=== PATIENT | female | born 1990 | race Caucasian/White ===

== ENCOUNTER 2021-07-09 01:15 | Emergency (ER) | payer OTHER ==
[~2021-07-09] VITALS: Ht 165.1 cm; Wt 96.2 kg
[2021-07-09] MEDS ORDERED: PROVENTIL HFA6.7 GM INH (01:27)
[2021-07-09] MEDS ORDERED: JENCYCLA0.35 MG PO (01:28)
--- NOTE | 2021-07-10 17:14 | EKG ---
[facility] [address] [facility] [place] [address] Signed Normal sinus rhythm with sinus arrhythmia Normal ECG No previous ECGs available Confirmed by JAGDEEP MARISCAL MD ([id number]) on 07/10/2021 5:14:39 PM Electronically Signed By: JAGDEEP MARISCAL MD 07/10/21 1714 PATIENT NAME: JOHNNY FANG Electrocardiogram DATE OF : 89 PHYSICIAN: JAGDEEP MARISCAL MD REPORT #: [id number] REPORT IS CONFIDENTIAL AND NOT TO BE RELEASED WITHOUT AUTHORIZATION
== END 2021-07-09 03:14 | disposition home or self-care (01) ==
LOC: ED 01:15
DX: R06.00 Dyspnea, unspecified (principal); R07.89 Other chest pain; Z88.8 Allergy status to other drugs, medicaments and biological substances; J45.909 Unspecified asthma, uncomplicated; Z79.899 Other long term (current) drug therapy
CPT/HCPCS: 71046; 80053; 84484; 84703; 85025; 93005; 93010; 99285-25

== ENCOUNTER 2021-09-15 21:29 | Emergency (ER) | payer OTHER ==
[~2021-09-15] VITALS: Ht 165.1 cm; Wt 90.5 kg
[~2021-09-15 21:29] MED LIST: JENCYCLA0.35 MG PO; PROVENTIL HFA6.7 GM INH
== END 2021-09-15 23:00 | disposition home or self-care (01) ==
LOC: ED 21:29
DX: S83.92XA Sprain of unspecified site of left knee, initial encounter (principal); W22.8XXA Striking against or struck by other objects, initial encounter; J45.909 Unspecified asthma, uncomplicated; Z88.8 Allergy status to other drugs, medicaments and biological substances; Z79.899 Other long term (current) drug therapy
CPT/HCPCS: 73560; 99283-25

== ENCOUNTER 2021-10-09 17:16 | Emergency (ER) | payer OTHER ==
[~2021-10-09] VITALS: Ht 165.1 cm; Wt 92.3 kg
--- OUTSIDE RECORDS SUMMARY | 2021-10-09 17:20 | XMS ---
PreManage Notification: JOHNNY FANG Security [employer] Events No recent Security Events currently on file CRITERIA MET - [facility] - 2 Visits in 30 Days CARE PROVIDERS There are no care providers on record at this time. Ricki has no Care Guidelines for this patient. Raquel VISIT COUNT (12 MO.) 3 [facility] D[place] TOTAL 3 NOTE: Visits indicate total known visits. ED/C VISIT TRACKING (12 MO.) 10/09/2021 17:17 [facility] COMPLAINT: - ABD PAIN,N/V,DIZZY, TROUBLE BREATHING 09/15/2021 21:30 [facility] [place] TYPE: Emergency COMPLAINT: - LEFT KNEE PAIN/INJ DIAGNOSES: - Allergy status to other drugs, medicaments and biological substances - Unspecified asthma, uncomplicated - Pain in left knee - Striking against or struck by other objects, initial encounter - Other senior care (current) drug therapy - Sprain of unspecified site of left knee, initial encounter 07/09/2021 01:16 [facility] [place] TYPE: Emergency COMPLAINT: - DYSPNEA DIAGNOSES: - Dyspnea, unspecified - Other chest pain - Allergy status to other drugs, medicaments and biological substances - Unspecified asthma, uncomplicated - Other senior care (current) drug therapy INPATIENT VISIT TRACKING (12 MO.) No inpatient visits to display in this time frame [email or web address]
[2021-10-09] MEDS ORDERED: HYDROCODON-ACE1 EA10 PO (18:51)
[2021-10-09] MEDS ORDERED: ONDANSETRON ODT8 MG PO (18:51)
== END 2021-10-09 19:00 | disposition home or self-care (01) ==
LOC: ED 17:16
DX: N94.6 Dysmenorrhea, unspecified (principal); J45.909 Unspecified asthma, uncomplicated; Z88.8 Allergy status to other drugs, medicaments and biological substances; Z79.899 Other long term (current) drug therapy
CPT/HCPCS: 36415; 76830; 76856; 85025; 96374; 96375; 99284-25; A9270; J1885; J2405; J7030

== ENCOUNTER 2022-02-10 16:57 | Emergency (ER) | payer OTHER ==
[~2022-02-10] VITALS: Ht 165.1 cm; Wt 91.6 kg
[~2022-02-10 16:57] MED LIST changes: +HYDROCODON-ACE1 EA10 PO; +ONDANSETRON ODT8 MG PO
[2022-02-10] MEDS ORDERED: CYCLOBENZAPRINE10 MG PO (18:30)
== END 2022-02-10 18:40 | disposition home or self-care (01) ==
LOC: ED 16:57
DX: S13.9XXA Sprain of joints and ligaments of unspecified parts of neck, initial encounter (principal); J45.909 Unspecified asthma, uncomplicated; Z88.8 Allergy status to other drugs, medicaments and biological substances; Z79.899 Other long term (current) drug therapy; V43.52XA Car driver injured in collision with other type car in traffic accident, initial encounter
CPT/HCPCS: 72040; 99284-25; A9270